=== PATIENT | male | born 1945 | race Caucasian/White ===

== ENCOUNTER 2019-06-04 10:00 | Outpatient (RCR) | payer MEDICARE, SELFPAY ==
[2018-12-26 07:41] VITALS: BMI 39.9
--- NOTE | 2019-04-27 11:23 | HP.PTEVAL ---
Patient's Visit Information GLENYS MARTIN is a 74 year old M referred to Physical Therapy by Tim Story MD with a diagnosis of B Trochanteric Bursitis. Date of Evaluation: 04/27/19 Physical Therapist: Narcisa Cohn DPT - Visit Plan Frequency: 2x /Week Duration: 4 Weeks Plan: Aquatics - Focus on LE/Core s/s and decreasing pain. 04/27/19 - Aquatics Orientation given - Subjective Findings: Pt. has B hip pauin (L>R), insidious onset dating to a few years ago. [facility] - x-rays neg. - stated he had bursistis of both hips. Pain with walking & ambualting stairs (asc>desc). Lives in two story home, stairs going down to basement - laundry is in basement- when carrying upstairs places basket 2-3 steps up then walks up and continues this pattern. Pain w/ carrying laudnry upstairs requires freq. rest periods asc. Worst: 7/10 Aggravating factors: walking long distances (farther he walks the worse it gets), stairs, laundry, picking up heavy items. Best: 2/10 Relief Factors: [facility]- sidestroke/backstroke), rest (heat & ice has had no effect). Describes pain as a deep ache at both hips, some LBP. Some intermitten sharp, shooting pain at L hip running down to mid balderrama. Does not interrupt sleep (side sleeper). Works concessions (food trucks) weekend events. Pain during work w/ lifitng and at times prolonged standing. Pain w/ prolonged driving & long trips of grocery shopping. Pain subsides after sitting down 0 takes a few hours for pain to go away. PMH: TKR R, DM, arpita blurred vision, hx of falls. Meds: No sig changes. - Objective Posture: FH, RS - corrected, but could not maintain- pt is overweight. Stairs: Used B UE on both handrails to push up to next step, Unequel weight shifts B. Used both handrails descending & lacked eccentric control. Gait: Slight B toe-out, increased stance time Right>left, decreased vandana. HR: WNL - B UE for balance. TR: Diminished by 25% - pain increased, B UE for balance. SLS: R/L: Unable to perform w/out B UE support d/t loss of balance & pain-does perform full weight and will continuous pickling line pickler opposite LE. ROM: L/S: Flex: hands to mid balderrama Ext able to perform extension in thoracic and L1- no lower lumber extension, SB/Rot. decreased by 50% bilaterally pain B in all directions, Hip: WFL - slight pain in L with flexion, Knee WFL. Strength: Ankle: 5/5 Knee 5/5, Hip Flex R 4-/5 L 4/5, Abd. R/L 4+/5 IR/ER: 4+/5 Core: Fair Minus. Flexibility: Gastroc: mod. Hamstring: mod. Special Tests: Slump test (-). DTRs: 2+ B. Sensation: WNL to Gross touch B. Observation: Bent at hips to continuous pickling line pickler pencil from floor - Goals Goal 1:: Pt. I w/ HEP & progression Goal Time Frame: 4-6 Weeks Goal 2:: Pt. will be able to amb. >300 ft. w/ pain level of 0/10 with a normalized gait pattern Goal Time Frame: 4-6 Weeks Goal 3:: Pt. will maintain proper posture t/o tx session to demo increased core s/s. Goal Time Frame: 4-6 Weeks Goal 4:: Pt. will be able to asc/maren stairs w/ normalized pattern & use of 1 handrail. Goal Time Frame: 4-6 Weeks - Rehabilitation Potential Physical Therapy Diagnosis: Presents w/ hypomobility, decreased strength, LBP, impaired gait/ability to amb. stairs, and pain which leads to pain w/ ADL's. Rehabilitation Potential: Good - Anticipated Interventions Patient/Client Instruction: Educate patient on: Condition, Plan of Care, Benefits of Fitness Program For the Purpose of:: To decrease pain Therapeutic Exercise to Include: Strength training, Endurance training, Balance training, Body mechanics, Postural training, Flexibilty training, Gait and locomotor training, In an aquatic setting, Active ROM, Dynamic Lumbar Stabilization For the Purpose of:: To improve muscle performance and motor function TENS: Yes Cryotherapy (ice pack, ice massage): Yes Thermo therapy (hot pack): Yes For the Purpose of:: To decrease pain, To improve muscle performance and motor function Thank you for the opportunity to evaluate your patient. For Medicare and Medicare HMO plans, please review the plan of care and approve it. It will need to be FAXED BACK to us at [phone] for Medicare purposes. For Medicare only, by signing this I certify the plan of care. Please let me know if there are questions or concerns regarding this plan of care. Physician Signature: Date:
--- NOTE | 2019-06-04 10:55 | HP.PTDCSUM ---
HP - PT D/C Summary It has been my pleasure to treat GLENYS MARTIN under orders from Tim Story MD, for the diagnosis of B Trochanteric Bursitis for a total of 7 visit(s). Discharge Date: Please see the following information for a summary of their discharge status. - Subjective Subjective: Pt. has felt aquatic therapy makes it feel good for an hour or so and then pain returns. Currently 2/10 pain. - Pain BLAT hips Pain Intensity (Out of 10): 1 - Overall Improvement % Improvement: 90 - Objective Objective/Function: Posture: FH, RS - corrected, but could not maintain- pt is overweight. Gait: Slight B toe-out, increased stance time Right>left, decreased vandana. HR: WNL - B UE for balance. TR: WNL - B UE for balance. SLS: R/L: 2 seconds before LOB. ROM: L/S: Flex: hands to mid balderrama Ext able to perform extension in thoracic and L1- no lower lumber extension, SB/Rot. decreased by 50% No pain, Hip: WFL - slight pain in L with flexion, Knee WFL. Strength: Ankle: 5/5 Knee 5/5, Hip Flex R 4-/5 L 4/5, Abd. R/L 4+/5 IR/ER: 4+/5 Core: Fair Minus. Flexibility: Gastroc: mod. Hamstring: mod. [ End ] - Goals Goal 1:: Pt. I w/ HEP & progression Goal Progress: Goal Met Goal 2:: Pt. will be able to amb. >300 ft. w/ pain level of 0/10 with a normalized gait pattern Goal Progress: Progressing Goal 3:: Pt. will maintain proper posture t/o tx session to demo increased core s/s. Goal Progress: Progressing Goal 4:: Pt. will be able to asc/maren stairs w/ normalized pattern & use of 1 handrail. Goal Progress: Progressing - Plan Plan: 06/04/19 Pt. D/C & instructed to cont. AT exercises on own at [facility] [place]. Instructed to return if questions/concerns. - D/C Information If there are questions or concerns regarding this patient's physical therapy, please feel free to call me at [phone]. Thank you for the referral of this patient. Sincerely, Narcisa Cohn DPT
== END 2019-06-04 14:00 | disposition home or self-care (01) ==
LOC: PT 10:00
PROVIDERS: Family Provider Family Medicine; PCP Family Medicine; Referring Provider Family Medicine; Visit Provider Family Medicine
DX: M70.61 Trochanteric bursitis, right hip (principal); M70.62 Trochanteric bursitis, left hip
CPT/HCPCS: 97113; 97161; 97164

== ENCOUNTER → 2021-01-12 06:56 | Outpatient (CLI) | payer MEDICARE, SELFPAY ==
[2020-12-25 12:07] VITALS: BMI 36.1
--- NOTE | 2021-01-12 14:17 | STRESSREP ---
Stress Test Report Exercise myocardial perfusion stress test. 75-year-old man with a history of coronary artery bypass surgery, hypertension, hyperlipidemia. Stress protocol: Resting EKG demonstrates sinus rhythm with a rate of 60 bpm normal intervals are noted resting blood pressure is 124/82 mmHg. The patient exercised according to the regular [place] protocol for a total duration of 4 minutes and 45 seconds. The maximum heart rate attained was 131 bpm which was 89% of maximum predicted heart rate the maximum workload was 6.7 metabolic equivalents. At rest there were no ST or T wave changes noted to suggest ischemia. Occasional premature ventricular complexes were noted. Ventricular couplet activity was also present. No chest pain was noted. The peak blood pressure was 164/72 mmHg. Myocardial perfusion protocol. 15.0 mCi of technetium 99m sestamibi was injected at rest. The patient exercised according to the regular [place] protocol for 4 minutes and 45 seconds. At peak exercise 44.1 mCi of technetium 99m sestamibi was injected stress images were obtained stress and rest images were reconstructed and compared in the short axis vertical long and horizontal long axis. Gated images were also obtained. Perfusion SPECT analysis: Review of the stress images demonstrate normal uptake of tracer noted in all areas of the myocardium. The resting images similarly demonstrate normal uptake of tracer noted in all areas of the myocardium. No areas of reversibility are noted to suggest ischemia and no previous infarct is noted. Gated SPECT analysis: The gated ejection fraction is 64%. Conclusion: Normal exercise myocardial perfusion stress test with no ischemia noted after moderate workload. Premature ventricular complexes noted. Preserved ejection fraction.
== END ==
PROVIDERS: PCP Family Medicine; Referring Provider Internal Medicine Cardiovascular Disease; Visit Provider Internal Medicine Cardiovascular Disease
DX: I25.10 Atherosclerotic heart disease of native coronary artery without angina pectoris (principal); Z95.1 Presence of aortocoronary bypass graft
CPT/HCPCS: 78452; 93017; A9500; A4216

== ENCOUNTER 2021-12-09 15:50 | Outpatient (CLI) | payer MEDICARE, SELFPAY ==
--- NOTE | 2021-12-09 15:53 | EKG12_ITS ---
Test Reason : PRE Blood Pressure : / mmHG Vent. Rate : 068 BPM Atrial Rate : 068 BPM P-R Int : 472 ms QRS Dur : 116 ms QT Int : 420 ms P-R-T Axes : 000 -41 056 degrees QTc Int : 446 ms Sinus rhythm with 1st degree A-V block with occasional Premature ventricular complexes Left axis deviation Incomplete left bundle branch block Abnormal ECG Confirmed by VALE VILLANUEVA, JACQUELINE ([id number]), editor at large IMELDA AYALA ([id number]) on 12/10/2021 10:59:27 AM Referred By: Duy Atkinson Confirmed By:JACQUELINE COLLAZO MD
[2021-12-09 16:21] LABS: Hematocrit 37.5 % (40-54); Hemoglobin 12.4 g/dL (13.0-16.5); Mean Corp Hgb Conc 33.1 g/dL (32-36); Mean Corpuscular Volume 90.6 fL (80-94); Mean Platelet Vol. 9.2 fl (6.2-12.0); Platelet Count 160 K/mm3 (150-450); RBC Distribution Width CV 13.3 % (11.6-14.6); RBC Distribution Width SD 44.1 fl (35.1-43.9); Red Blood Count 4.14 M/mm3 (4.6-6.2); White Blood Count 8.1 K/mm3 (4.4-11.0)
[2021-12-09 16:37] LABS: Hemoglobin A1c 6.7 % (3.8-5.6)
[2021-12-09 17:19] LABS: Anion Gap 7 (5-15); BUN 24 mg/dL (7-18); BUN/Creat Ratio 17.4 RATIO (10-20); Calcium,Total 9.2 mg/dL (8.5-10.1); Chloride 106 mmol/L (98-107); Creatinine, Serum 1.38 mg/dL (0.70-1.30); EST Glomerular Filtration Rate 53 mL/min (>60); Est Glom Filt Rate - Afr Amer 65 mL/min (>60); Glucose 95 mg/dL (74-106); Sodium Level 140 mmol/L (136-145)
== END 2021-12-09 23:59 | disposition home or self-care (01) ==
LOC: PSN 15:52
PROVIDERS: PCP Family Medicine; Referring Provider Physician Assistant; Visit Provider Physician Assistant
DX: Z01.818 Encounter for other preprocedural examination (principal); E11.9 Type 2 diabetes mellitus without complications; Z01.810 Encounter for preprocedural cardiovascular examination
CPT/HCPCS: 36415; 80048; 83036; 85027; 93005